=== PATIENT | male | born 1965 | race Caucasian/White ===

== ENCOUNTER 2023-12-17 10:01 | Emergency (ER) | payer OTHER, SELFPAY ==
[2023-12-17 10:14] VITALS: BP 119/60; PULSE 83; RESP 16; TEMP 36.9; O2SAT 98
[2023-12-17 10:16] VITALS: BP 119/60; PULSE 83; RESP 16; TEMP 36.9; O2SAT 98
--- NOTE | 2023-12-17 10:31 | ED.SKABFB ---
HPI - Skin/Abscess/Foreign Bdy General Chief complaint: Skin/Abscess/Foreign Body Stated complaint: Left Arm Irritatino Time Seen by Provider: 12/17/23 10:25 Source: patient and RN notes reviewed Mode of arrival: ambulatory Limitations: no limitations History of Present Illness HPI narrative: Patient presents today complaining of a 2 day history of, swelling, and pain from left 2nd finger extending proximally to the hand and up the mid forearm. States symptoms have slightly worsened since onset. Denies fever, sweats or chills, nausea or vomiting. Reports that he believes he has a wart to the tip of his 2nd finger that has been there for many months that he has been freezing with compound W without relief and believes this may be the source of his symptoms. History of diabetes. 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 Related Data Home Medications Medication Instructions Recorded Confirmed cholestyramine (with sugar) 4 gram See Rx Instructions .Route .COMPLEX 12/17/23 12/17/23 oral powder clobetasol 0.05 % topical ointment 1 applic topical BID 12/17/23 12/17/23 exenatide microspheres 2 mg/0.85 2 mg subcut WEEKLY 12/17/23 12/17/23 mL subcutaneous auto-injector (Caktus) fenofibrate nanocrystallized 48 mg 48 mg PO DAILY 12/17/23 12/17/23 tablet furosemide 20 mg tablet 20 mg PO DAILY 12/17/23 12/17/23 loperamide 2 mg capsule 2 mg PO DAILY 12/17/23 12/17/23 olmesartan 20 mg tablet 20 mg PO DAILY 12/17/23 12/17/23 probenecid 500 mg-colchicine 0.5 1 tablet PO DAILY 12/17/23 12/17/23 mg tablet rosuvastatin 5 mg tablet 5 mg PO HS 12/17/23 12/17/23 trazodone 150 mg tablet 150 mg PO HS 12/17/23 12/17/23 Allergies Allergy/AdvReac Type Severity Reaction Status Date / Time No Known Allergies Allergy Verified 12/17/23 10:13 Review of Systems Review of Systems: CONSTITUTIONAL: Denies body aches, fever, chills, or sweats. EYES: Denies visual changes, redness, or discharge. ENT: Denies rhinorrhea, congestion, sore throat, or otalgia. CARDIOVASCULAR: Denies chest pain, palpitations, or edema. RESPIRATORY: Denies cough or dyspnea. GASTROINTESTINAL: Denies abdominal pain, nausea, vomiting, or diarrhea. GENITOURINARY: Denies dysuria or hematuria. SKIN: Denies rash, itching, or wounds. MUSCULOSKELETAL:+ redness, swelling, pain to the left hand and forearm NEUROLOGIC: Denies headache, numbness, tingling, or weakness. PSYCH: Denies depression or anxiety. [facility] Past Medical History Medical History (Updated 12/17/23 @ 10:44 by Chloe Meza, [facility], ) Colorectal cancer Diabetes High cholesterol Hypertension Comments At time of signature, I have reviewed and agree with nursing past medical, surgical, social and family history unless otherwise noted. Please see nursing chart for further information. There is no relevant family history pertinent to the presenting complaint Exam Narrative: GENERAL: Well-appearing, well-nourished, and in no acute distress. HEAD: Normocephalic, atraumatic. EYES: EOMI. No redness or drainage. Conjunctivae normal. ENT: Mucous membranes pink and moist. NECK: Normal AROM. CHEST: No respiratory distress. EXTREMITIES: Erythema and mild edema to the left 2nd finger extending proximally up the lateral hand and lateral mid forearm. Tender to palpation. Distal sensation intact. Capillary refill normal. Radial pulse normal. Full range of motion of the hand, fingers, wrist, and elbow. SKIN: Warm, dry, no rash. Capillary refill normal. Normal skin turgor. NEURO: No focal deficits. Alert and oriented x3. Gait steady. PSYCH: Normal affect. No signs of depression or anxiety. Course Course Level of Care: Express Care Visit Vital Signs Vital signs: Vital Signs Temperature 98.5 F 12/17/23 10:14 Pulse Rate 83 12/17/23 10:14 Respiratory Rate 16 12/17/23 10:14 Blood Pressure 119/60 12/17/23 10:14 Pulse Oximetry 98
== END 2023-12-17 10:35 | disposition home or self-care (01) ==
PROVIDERS: Emergency Provider Nurse Practitioner
DX: L03.012 Cellulitis of left finger (principal); L03.114 Cellulitis of left upper limb; E11.9 Type 2 diabetes mellitus without complications; E78.00 Pure hypercholesterolemia, unspecified; I10 Essential (primary) hypertension; Z85.038 Personal history of other malignant neoplasm of large intestine
CPT/HCPCS: 99203; G0463